=== PATIENT | female | born 1950 | race Caucasian/White ===

== ENCOUNTER → 2016-10-20 | Outpatient (CLI) | payer OTHER, MEDICARE | LOC: SLEEP LAB 19:42 | PROVIDERS: ATTEND Family Medicine | DX: G47.33 Obstructive sleep apnea (adult) (pediatric) (principal); G47.34 Idiopathic sleep related nonobstructive alveolar hypoventilation | CPT/HCPCS: 95811 ==

== ENCOUNTER → 2016-11-02 | Outpatient (CLI) | payer OTHER, MEDICARE | LOC: MMPC 09:00 | PROVIDERS: ATTEND Family Medicine | DX: G47.33 Obstructive sleep apnea (adult) (pediatric) (principal); G47.34 Idiopathic sleep related nonobstructive alveolar hypoventilation; I27.2 Other secondary pulmonary hypertension; I10 Essential (primary) hypertension; E78.5 Hyperlipidemia, unspecified | CPT/HCPCS: 99213; G0463 ==

== ENCOUNTER → 2017-01-27 | Outpatient (CLI) | payer OTHER, MEDICARE | LOC: MMPC 09:00 | PROVIDERS: ATTEND Family Medicine | DX: N64.4 Mastodynia (principal); I27.2 Other secondary pulmonary hypertension; Z78.0 Asymptomatic menopausal state; Z87.898 Personal history of other specified conditions ==

== ENCOUNTER → 2017-02-02 | Outpatient (CLI) | payer OTHER, MEDICARE ==
--- NOTE | 2017-02-02 21:12 | DI ---
PA /LATERAL CHEST X-RAY, 02/02/2017 11:18 AM : Clinical History: Pulmonary hypertension. Previous Exam: 02/04/2016. There is no acute soft tissue or bony abnormality. There is cardiomegaly without CHF. No acute infilt rate or effusion is present. There is "tram tracking" in the lower lobe bronchi consistent with chron ic bronchitis or bronchiectasis. There is pulmonary arterial hypertension. Mediastinal structures are otherwise normal. There are no pulmonary nodules. Readin. There is no acute infiltrate or effusion, but there is "tram tracking" consistent with chronic br onchitis or bronchiectasis. 2. Mild cardiomegaly without CHF.
== END ==
LOC: RAD 11:09
PROVIDERS: ATTEND Family Medicine
DX: I27.2 Other secondary pulmonary hypertension (principal); Z87.09 Personal history of other diseases of the respiratory system; I51.7 Cardiomegaly
CPT/HCPCS: 71020

== ENCOUNTER → 2017-03-22 | Outpatient (CLI) | payer OTHER, MEDICARE ==
[2017-03-22 12:59] LABS: BASOPHILS # (AUTO) 0.12 10*3/UL; BASOPHILS % (AUTO) 1.2 % (0-1); EOSINOPHILS # (AUTO) 0.26 10*3/UL; EOSINOPHILS % (AUTO) 2.6 % (0-8); HEMATOCRIT 44.9 % (37.0-47.0); HEMOGLOBIN 14.6 g/dL (12.0-16.0); MEAN CORPUSCULAR HEMOGLOBIN 28.9 PG (27-31); MEAN CORPUSCULAR HGB CONC 32.5 g/dL (33-37); MEAN CORPUSCULAR VOLUME 88.7 FL (81-99); MEAN PLATELET VOLUME 10.9 FL (7.4-12.2); MONOCYTES # (AUTO) 0.85 10*3/UL (0.3-0.8); MONOCYTES % (AUTO) 8.5 % (5-15); NEUTROPHILS # (AUTO) 6.17 10*3/UL; NEUTROPHILS % (AUTO) 61.5 % (50-80); RED BLOOD COUNT 5.06 10^6/uL (4.20-5.40)
[2017-03-22 13:11] LABS: PLATELET MORPHOLOGY COMMENT NORMAL MORPHOLOGY (NORM); RBC MORPHOLOGY COMMENT NORMAL MORPHOLOGY (NORM); WBC MORPHOLOGY COMMENT NORMAL MORPHOLOGY (NORM)
[2017-03-22 13:22] LABS: BLOOD UREA NITROGEN 17 mg/dL (7-22); BUN/CREATININE RATIO 24.28 (6-20); CALCIUM 9.7 mg/dL (8.7-10.7); CHOL/HDL RATIO 4.95 RATIO (0-4.0); EST GLOMERULAR FILTRATION > 60 (>60 ml/min/1.73m(2)); HDL CHOLESTEROL 43 mg/dL (40-150); LIPASE 107 IU/L (23-300); SERUM ALBUMIN 4.3 g/dL (3.5-4.8); SERUM CHOLESTEROL 213 mg/dL (120-200)
[2017-03-22 13:39] LABS: VITAMIN D 25-HYDROXY 25.8 NG/ML (30-100)
== END ==
LOC: MOB LAB 10:24
PROVIDERS: ATTEND Family Medicine
DX: I10 Essential (primary) hypertension (principal); E78.5 Hyperlipidemia, unspecified; I27.2 Other secondary pulmonary hypertension; R10.12 Left upper quadrant pain; K21.9 Gastro-esophageal reflux disease without esophagitis
CPT/HCPCS: 36415; 80053; 80061; 82150; 82306; 83516; 83690; 84443; 85025; 99214; G0463